=== PATIENT | female | born 1960 | race Caucasian/White ===

== ENCOUNTER 2021-04-20 07:57 | Emergency (ER) | payer BC ==
--- OUTSIDE RECORDS SUMMARY | 2021-04-20 08:00 | XMS REPORT | Continuity of Care Document ---
:1960 Author Organization [facility] t Address [address] [place] [address] Care Team Providers Name Role Phone ARANZA Attending Clinician Unavailable MD SHREE COBIAN Attending Clinician Unavailable ARANZA Admitting Clinician Unavailable BETY WATKINS Admitting Clinician Unavailable Problems This patient has no known problems. Allergies, Adverse Reactions, Alerts Allergy Allergy Status Severity Reaction(s) Onset Inactive Treating Comm ents Source Name Type Date Date Clinician IODINE DRUG Active Other-Cmnt Univer s INGREDI 9-14 ity of 00:00: [address] PENICILL Drug Active Hives 0 [facility] INS Class 9-14 ity of 00:00: [address] SULFA Drug Active Hives 0 Univers (SULFONA Class 9-14 ity of MIDE 00:00: [place] ANTIBIOT [address] [place] [address]) Branch Medications This patient has no known medications. Immunizations Ordered Immunization Filled Immunization Date Status Commen ts Source Name Name Pfizer COVID-19 Vaccine Pfizer COVID-19 2020-09-23 Completed Vaccine 00:00:00 Pfizer COVID-19 Vaccine Pfizer COVID-19 2020-08-27 Completed Vaccine 00:00:00 Procedures This patient has no known procedures. Encounters Start End Encounter Admission Attending Care Care Encounter Source Date/Time Date/Time Type Type Clinicians Facility Department ID 2021-03-19 Outpatient [facility] [id number] 14:27:41 [id number] Lucie - Gabriele faustin Outpat[facility] ent Clinics 2021-04-16 2021-04-16 Outpatient [facility] [id number] [place] 00:00:00 00:00:[address] 2021-04-14 2021-04-14 Outpatient ARANZA [facility] [id number] [place] 00:00:00 00:00:00 TARIQ [address] [facility] 2021-04-09 2021-04-09 Outpatient ARANZA [facility] [id number] [place] 00:00:00 00:00:00 TARIQ 705 [facility] 2021-04-09 2021-04-09 Outpatient ARANZA [facility] [id number] [place] 00:00:00 00:00:00 TARIQ [address] [facility] 2021-02-27 2021-02-27 Outpatient [facility] [id number] [place] 00:00:00 00:00:00 7[address] [facility] 2020-09-23 2020-09-23 Outpatient [facility] [id number] [facility] 00:00:00 00:00:00 V 2020-08-27 2020-08-27 Outpatient [facility] [id number] [facility] 00:00:00 00:00:00 V 2020-01-11 2020-01-11 Outpatient R [facility] [id number] 13:20:00 13:20:00 [id number] [facility] Results Test Description Test Time Test Comments Results Result Comments Source SARS-CoV-2 (COVID-19) RNA [Presence] in Respiratory sp ecimen by 2021-04-09 14:53:27 LUDWIN with probe detection Test Item Value Reference Range Interpretation Comme nts SARS-CoV-2 (COVID-19) RNA [Presence] in Respiratory Not detected No t-Detected specimen by LUDWIN with probe detection (test code = 82185-8) Whether patient is employed in a healthcare setting (test code = 36901-2) Whether the patient has symptoms related to condition of interest (test code = 06273-5) Patient was hospitalized because of this condition (test code = 58993-7) Whether the patient was admitted to intensive care unit (ICU) for condition of interest (test code = 01879-6) Whether patient resides in a congregate care setting (test code = 32964-7) SCR MAMM BILATERAL MYAH CAD [id number] 12:41:06 Name: Miguel Ángel : 1960 Sex: F - SCR MAMM BILATERAL MYAH CAD DIGITALBILATERAL DIGITAL SCREENING MAMMOGRAM 3D/2D WITH CAD: 04/29/2020LINICAL: Asymptomatic. Digital breast tomosynthesis was performed in addition to routine CC and MLO views. Current mammographic images were evaluated by either a [employer] M-Vu or a [employer] CAD (computer aided detectionsystem). Comparison is made to exams dated 01/31/2019 mammogram, 12/14/2017 mammogram, and 10/05/2016 mammogram - [facility]-. There are scattered fibroglandular tissues in both breasts. There is a benign calcification in the left breast. There also is a biopsy clip in the right [address]. No suspicious mass, architectural distortion, malignant type calcification, or lymph node abnormality detected. Breast architecture is stable compared to prior exams.IMPRESSION: BENIGNThere is nomammographic evidence of malignancy. Resume annual screening mammography in one year. Khai Contreras M.D. ss/penrad:05/01/2020 12:41:06 Etched Circuit Processor: Elena FERNANDEZ, [facility]-letter sent: BIRADS 1-2 Normal Mammogram BI-RADS: 2 BenignSCR MAMM BILATERAL CAD [id number] 15:07:02 - SCR MAMM BILATERAL CAD DIGITALBILATERAL DIGITAL SCREENING MAMMOGRAM WITH CAD: 01/31/2019CLINICAL: Asymptomatic. Current mammographic images were evaluated by either a [employer] M- Vu or a [employer] CAD (computer aided detection system). Comparison is made to exams dated 12/14/2017 mammogram, 10/05/2016 mammogram, and 09/05/2015 mammogram - [facility]-. There are scattered fibroglandular tissues in both breasts. There is a benign calcification in the left breast. There also is a biopsy clip in the right breast. No suspicious mass, architectural distortion, malignant type calcification, or lymph node abnormality detected. IMPRESSION: BENIGNThere is no mammographic evidence of malignancy. Resume annual screening mammography in one year. Khai wyman/penmarva:01/31/2019 15:07:02 Etched Circuit Processor: Esperanza Lobato FW, [facility]-FWletter sent: BIRADS 1-2 Normal Mammogram BI-RADS: 2 Benign
[2021-04-20] MEDS ORDERED: DIAZEPAM 5 MG TABLET ONE (08:43)
[2021-04-20 08:51] LABS: Absolute Lymphocytes (CBC) 2.1 K/uL (0.7-4.9); Hematocrit 40.5 % (36.0-45.0); Lymphocytes % 26.7 % (15.3-44.8); MPV 8.7 fL (7.6-11.3); RBC Red Blood Cell Count 4.38 M/uL (3.86-4.86)
[2021-04-20 09:17] LABS: Albumin 3.7 g/dL (3.4-5.0); Bilirubin Total 0.5 mg/dL (0.2-1.0); Protein, Total 7.9 g/dL (6.4-8.2)
[2021-04-20 09:18] LABS: Potassium 3.5 mmol/L (3.5-5.1)
--- NOTE | 2021-04-20 09:29 | RAD REPORT ---
EXAM DESCRIPTION: RAD - Chest Single View - 04/20/2021 9:13 am CLINICAL HISTORY: sob COMPARISON: No comparisons FINDINGS: Lines: None. Lungs: No evidence of edema or pneumonia. Pleural: No significant pleural effusions or pneumothorax. Cardiac: The heart size is within normal limits. Bones: No acute fractures. Other: IMPRESSION: No acute cardiopulmonary disease.
[2021-04-20 09:54] LABS: Urine Blood 1+ (Negative); Urine Glucose Negative (Negative); Urine Protein Negative (Negative); Urine Specific Gravity 1.015 (1.005-1.030); Urine pH 6.5 (5.0-7.0)
--- NOTE | 2021-04-20 12:08 | RAD REPORT ---
EXAM DESCRIPTION: NM - Vent Perfusion VQ Scan - 04/20/2021 11:57 am CLINICAL HISTORY: Shortness of breath COMPARISON: Chest Single View dated 04/20/2021 TECHNIQUE: The patient was administered approximately 15.1 MCi Xenon 133 gas with posterior projecti on inspiration, equilibrium, and washout views obtained. The patient was then administered approximat jessica 7.6 MCi Tc-99m SC labeled RBCs followed by standard 8 view protocol. FINDINGS: There is good distribution of the Xenon with no ventilation defects identified. Air trappi ng is present. Perfusion images show no defects suspicious for pulmonary emboli. IMPRESSION: Very low probability for pulmonary embolism. Air trapping.
--- NOTE | 2021-04-20 12:28 | ER ---
Nurse's Notes [facility] Name: Madeleine Abrams Age: 61 yrs Sex: Female : 1960 Arrival Date: 04/20/2021 Time: 07:57 Bed 19 Private MD: Diagnosis: Dyspnea, unspecified;Moderate persistent asthma with (acute) exacerbation Presentation: 04/20 07:57 Chief complaint: Patient states: Sudden onset of feeling as if something was stuck in ss her throat while eating breakfast this morning. EMS reports VS en route: 100% on RA, 172/94, HR 100. Coronavirus screen: Client denies travel out of the [place] in the last 14 days. Ebola Screen: Patient denies exposure to infectious person. Patient denies travel to an Ebola-affected area in the 21 days before illness onset. Initial Sepsis Screen: Does the patient meet any 2 criteria? No. Patient's initial sepsis screen is negative. Does the patient have a suspected source of infection? No. Patient's initial sepsis screen is negative. Risk Assessment: Do you want to hurt yourself or someone else? Patient reports no desire to harm self or others. Onset of symptoms was April 20, 2021. 07:57 Method Of Arrival: Ambulatory ss 07:57 Acuity: DEYA 3 ss Triage Assessment: 09:20 General: Appears in no apparent distress. Respiratory: Onset: The symptoms/episode eo2 began/occurred this morning, the patient has mild shortness of breath. Historical: - Allergies: 08:00 PENICILLINS; ss 08:00 Sulfa (Sulfonamide Antibiotics); ss 08:43 Iodinated Contrast Media - IV Dye; eo2 - Immunization history:: Adult Immunizations up to date, Client reports receiving the 2nd dose of the Covid vaccine. - Social history:: Smoking status: Patient denies any tobacco usage or history of. Patient/guardian denies using alcohol. Screenin:15 Abuse screen: Denies threats or abuse. Denies injuries from another. Nutritional eo2 screening: No deficits noted. Tuberculosis screening: No symptoms or risk factors identified. Fall Risk None identified. Assessment: 09:15 General: Appears in no apparent distress. comfortable, Behavior is calm, cooperative. eo2 Pain: Denies pain. Neuro: Level of Consciousness is awake, alert, obeys commands, Oriented to person, place, time, situation, Denies dizziness, headache. Cardiovascular: Heart tones S1 S2 Capillary refill < 3 seconds Rhythm is regular. Respiratory: Airway is patent Respiratory effort is even, unlabored, Respiratory pattern is regular, symmetrical, Breath sounds are clear bilaterally. Parent/caregiver reports the patient having shortness of breath sudden onset this AM. GI: No deficits noted. No signs and/or symptoms were reported involving the gastrointestinal system. : Reports urinary frequency, bladder mesh sx on Wednesday. 12:51 General: Pt departed ed ambulatory with all personal effects, pt in nad, vss. lr4 Vital Signs: 07:57 Pulse Ox 98.0% ; ss 08:00 Temp 98.0(O); ss 08:06 BP 155 / 80; Pulse 89; Resp 20; Pulse Ox 98% on R/A; ss 09:18 BP 140 / 72; Pulse 86; Resp 17; Pulse Ox 96% ; Pain 0/10; eo2 10:00 BP 138 / 79; Pulse 87; Resp 15; Pulse Ox 97% ; Pain 0/10; eo2 11:00 BP 133 / 72; Pulse 81; Resp 14; Pulse Ox 98% ; Pain 0/10; eo2 12:51 BP 144 / 76; Pulse 100; Resp 18; Pulse Ox 96% on R/A; lr4 Vitals: 09:15 Cardiac Rhythm Assessment Regular. eo2 ED Course: 07:57 Patient arrived in ED. ss 08:00 Triage completed. ss 08:00 Arm band placed on right wrist. ss 08:03 Phi Wallace MD is Attending Physician. jr11 08:20 Briana Gracia RN is Primary Nurse. eo2 08:36 Inserted saline lock: 22 gauge in right antecubital area, using aseptic technique. eo2 Blood collected. 09:13 Chest Single View In Process Unspecified. EDMS 09:13 Comprehensive Metabolic Panel Sent. eo2 09:13 Troponin High Sensitivity Sent. eo2 09:15 Patient has correct armband on for positive identification. hall monitor on. Pulse eo2 ox on. NIBP on. Door closed. Noise minimized. Warm blanket given. 09:15 No provider procedures requiring assistance completed. eo2 09:31 Inserted saline lock: 22 gauge in left antecubital area, using aseptic technique. IV eo2 discontinued, pt requested. 11:51 Vent Perfusion VQ Scan In Process Unspecified. EDMS Administered Medications: 08:43 Drug: Valium (diazepam) 2.5 mg Route: PO; eo2 09:40 Follow up: Response: No adverse reaction eo2 12:45 Drug: predniSONE 60 mg Route: PO; lr4 12:50 Follow up: Response: No adverse reaction lr4 Outcome: 12:28 Discharge ordered by . jr11 12:52 Discharged to home ambulatory. lr4 12:52 Discharge instructions given to patient. lr4 12:52 Condition: stable lr4 12:52 Patient left the ED. lr4 Signatures: Dispatcher [employer] EDMS Perlita Purvis RN RN ss Briana Gracia RN RN eo2 Phi Wlalace MD MD jr11 Karen Saba RN RN lr4
--- NOTE | 2021-04-20 12:28 | EDPHYS ---
Physician Documentation [facility] Name: Madeleine Abrams Age: 61 yrs Sex: Female : 1960 Arrival Date: 04/20/2021 Time: 07:57 Bed 19 Private MD: ED Physician Phi Wallace HPI: 04/20 08:07 This 61 yrs old Female presents to ER via Ambulatory with complaints of jr11 Shortness Of Breath. 08:07 The patient has shortness of breath at rest. jr11 08:19 Onset: The symptoms/episode began/occurred 2 hour(s) ago. Duration: The symptoms are jr11 continuous. The patient's shortness of breath is aggravated by nothing, is alleviated by nothing. Associated signs and symptoms: Pertinent negatives: chest pain, non-productive cough, loss of consciousness. Severity of symptoms: At their worst the symptoms were moderate in the emergency department the symptoms have improved Pain is currently a 0 / 10. Pt was walking after eating breakfast, then felt dyspnea. No CP. . Historical: - Allergies: 08:00 PENICILLINS; ss 08:00 Sulfa (Sulfonamide Antibiotics); ss 08:43 Iodinated Contrast Media - IV Dye; eo2 - Immunization history:: Adult Immunizations up to date, Client reports receiving the 2nd dose of the Covid vaccine. - Social history:: Smoking status: Patient denies any tobacco usage or history of. Patient/guardian denies using alcohol. ROS: 08:19 Constitutional: Negative for fever, chills Eyes: Negative for injury, pain, redness, jr11 and discharge, ENT: Negative for injury, pain, and discharge, Neck: Negative for injury, pain, and swelling, Cardiovascular: Negative for chest pain, palpitations, and edema, Respiratory: Negative for shortness of breath, cough Abdomen/GI: Negative for abdominal pain, nausea, vomiting Back: Negative for injury and pain, : Negative for injury, bleeding, discharge, and swelling, MS/Extremity: Negative for injury and deformity, Skin: Negative for injury, rash, and discoloration, Neuro: Negative for headache, weakness, numbness, tingling, and seizure, Psych: Negative for depression, anxiety, suicide ideation, homicidal ideation, and hallucinations, Hematologic/Lymphatic: Negative for swollen nodes, abnormal bleeding, and unusual bruising. Exam: 08:19 Constitutional: This is a well developed, well nourished patient who is awake, alert, jr11 and in no acute distress. Head/Face: Normocephalic, atraumatic. Eyes: Extra-ocular motions intact. Lids and lashes normal. Conjunctiva and sclera are non-icteric and not injected. Cornea within normal limits. Periorbital areas with no swelling, redness, or edema. ENT: Nares patent. No nasal discharge, no septal abnormalities noted. Oropharynx with no redness, swelling, or masses, exudates, or evidence of obstruction, uvula midline. Mucous membranes moist. Neck: Trachea midline, no thyromegaly or masses palpated, and no cervical lymphadenopathy. Supple, full range of motion without nuchal rigidity, or vertebral point tenderness. No Meningismus. Chest/axilla: Normal chest wall appearance and motion. Nontender with no deformity. No lesions are appreciated. Cardiovascular: Regular rate and rhythm with a normal S1 and S2. No gallops, murmurs, or rubs. Normal PMI, no JVD. No pulse deficits. Respiratory: Lungs have equal breath sounds bilaterally, clear to auscultation and percussion. No rales, rhonchi or wheezes noted. No increased work of breathing, no retractions or nasal flaring. Abdomen/GI: Soft, non-tender, with normal bowel sounds. No distension or tympany. No guarding or rebound. No evidence of tenderness throughout. Back: No spinal tenderness. No costovertebral tenderness. Full range of motion. Skin: Warm, dry with normal turgor. Normal color with no rashes, no lesions, and no evidence of cellulitis. MS/ Extremity: Pulses equal, no cyanosis. Neurovascular intact. Full, normal range of motion. Neuro: Awake and alert, GCS 15, oriented to person, place, time, and situation. No gross motor or sensory deficits. 08:19 ECG was reviewed by the Attending Physician. EKG interpreted by NSR nl axis, normal jr11 intervals, no acute ST changes, non specific TWI III Vital Signs: 07:57 Pulse Ox 98.0% ; ss 08:00 Temp 98.0(O); ss 08:06 BP 155 / 80; Pulse 89; Resp 20; Pulse Ox 98% on R/A; ss 09:18 BP 140 / 72; Pulse 86; Resp 17; Pulse Ox 96% ; Pain 0/10; eo2 10:00 BP 138 / 79; Pulse 87; Resp 15; Pulse Ox 97% ; Pain 0/10; eo2 11:00 BP 133 / 72; Pulse 81; Resp 14; Pulse Ox 98% ; Pain 0/10; eo2 12:51 BP 144 / 76; Pulse 100; Resp 18; Pulse Ox 96% on R/A; lr4 MDM: 08:03 Patient medically screened. [facility] 08:19 Differential diagnosis: asthma, Chronic Obstructive Pulmonary Disease pneumonia. Data [facility] reviewed: vital signs, nurses notes, EMS record, EKG. 12:25 ED course: Pt with low prob PE, used inhaler prior to coming in, air trapping on scan, jr11 will give steroids. 04/20 08:25 Order name: Comprehensive Metabolic Panel; Complete Time: 09:24 EDMS 04/20 08:25 Order name: D-Dimer; Complete Time: 09:03 EDCT 04/20 09:03 Interpretation: Abnormal. [facility] 04/20 08:25 Order name: Troponin High Sensitivity; Complete Time: 09:18 EDCT 04/20 08:25 Order name: CBC with Automated Diff; Complete Time: 09:03 EDCT 04/20 08:25 Order name: Chest Single View; Complete Time: 09:34 EDCT 04/20 08:46 Order name: Protime (+INR); Complete Time: 09:03 EDCT 04/20 09:54 Order name: Urine Dipstick-Ancillary; Complete Time: 10:06 [facility] 04/20 10:01 Order name: Vent Perfusion VQ Scan; Complete Time: 12:24 EDCT 04/20 08:10 Order name: Cardiac monitoring; Complete Time: 09:14 [facility] 04/20 08:10 Order name: EKG - Nurse/Tech; Complete Time: 09:14 [facility] 04/20 08:10 Order name: IV Saline Lock; Complete Time: 09:14 [facility] 04/20 08:10 Order name: Labs collected and sent; Complete Time: 09:14 [facility] 04/20 08:10 Order name: O2 Sat Monitoring; Complete Time: 09:14 [facility] 04/20 08:17 Order name: O2 Per Protocol; Complete Time: 09:[address] [facility] 04/20 08:26 Order name: EKG Electrocardiogram; Complete Time: 09:13 EDMS 04/20 09:34 Order name: Urine Dipstick-Ancillary (obtain specimen); Complete Time: 10:31 goldie Administered Medications: 08:43 Drug: Valium (diazepam) 2.5 mg Route: PO; eo2 09:40 Follow up: Response: No adverse reaction eo2 12:45 Drug: predniSONE 60 mg Route: PO; lr4 12:50 Follow up: Response: No adverse reaction lr4 Disposition: 08:19 Critical Care:. jr Disposition Summary: 04/20/21 12:28 Discharge Ordered Location: Home jr Condition: Stable jr11 Diagnosis - Dyspnea, unspecified jr11 - Moderate persistent asthma with (acute) exacerbation jr11 Followup: jr11 - With: Private Physician - When: 1 - 2 days - Reason: Re-evaluation by your physician Discharge Instructions: - Discharge Summary Sheet jr11 - Asthma, Adult jr11 - Shortness of Breath, Adult jr11 Forms: - Medication Reconciliation Form jr11 - Thank You Letter jr11 - Antibiotic Education jr11 - Prescription Opioid Use jr11 Prescriptions: - Prednisone 20 mg Oral Tablet - take 3 tablets by ORAL route once daily for 5 days; 15 tablet; Refills: 0, jr11 Product Selection Permitted Signatures: Dispatcher [employer] EDMS Jim Castellanos PA PA jmm Smirch, Shelby, RN RN ss Briana Gracia RN RN eo2 Phi Wallace MD MD jr11 Karen Saba RN RN lr4 Corrections: (The following items were deleted from the chart) 08:05 08:03 Patient medically screened. [facility] jr11 08:44 08:25 Protime (+INR) ordered. EDCT EDMS
[2021-04-20] MEDS ORDERED: predniSONE 20 MG TAB ONE (12:47)
[2021-04-20 12:59] VITALS: TEMP 98
[2021-04-20 13:06] VITALS: BP 144/76; O2SAT 96
--- NOTE | 2021-04-21 08:50 | EKG ---
Test Date: 2021-04-20 Test Time: 08:11:19 Avionics Systems Engineer: EO MEASUREMENT RESULTS: Intervals: Rate: 84 PA: 138 QRSD: 84 QT: 370 QTc: 437 [place]: P: -3 PA: 138 QRS: 22 T: 17 INTERPRETIVE STATEMENTS: Normal sinus rhythm Normal ECG Compared to ECG 01/27/2021 14:51:05 No significant changes Electronically Signed On 04-21-21 08:47:46 [employer] MELTING SUPERVISOR by Don Che
== END 2021-04-20 12:52 | disposition home or self-care (01) ==
LOC: ER 07:57
DX: J45.41 Moderate persistent asthma with (acute) exacerbation (principal); Z88.0 Allergy status to penicillin; Z88.2 Allergy status to sulfonamides; Z91.041 Radiographic dye allergy status
CPT/HCPCS: 93005; 85025; 36415; 85610; 85379; 81003; 84484; 80053; 71045; 78582; 99284; A9558; A9540; J7512

== ENCOUNTER 2023-08-11 11:21 | Emergency (ER) | payer OTHER ==
--- NOTE | 2023-08-11 12:17 | RAD REPORT ---
EXAM DESCRIPTION: CT - CTHCSPWOC - 08/11/2023 12:06 pm CLINICAL HISTORY: Trauma, head and neck injury. TRAUMA COMPARISON: No comparisons TECHNIQUE: Axial 5 mm thick images of the head were obtained. Axial 2 mm thick images of the cervical spine were obtained with sagittal and coronal reconstruction images generated and reviewed. All CT scans are performed using dose optimization technique as appropriate and may include automated exposure control or mA/KV adjustment according to patient size. FINDINGS: CT HEAD WITHOUT CONTRAST: No acute hemorrhage, hydrocephalus or extra-axial collection is identified.No areas of brain edema or midline shift. The paranasal sinuses and mastoids are clear.The calvarium is intact. CT CERVICAL SPINE WITHOUT CONTRAST: No fracture or subluxation.No prevertebral soft tissues swelling is identified. IMPRESSION: No acute intracranial or cervical spine findings.
[2023-08-11 13:28] VITALS: BP 141/69; TEMP 97.9; O2SAT 98
--- NOTE | 2023-08-11 15:07 | ER ---
Nurse's Notes [facility] Name: Madeleine Abrams Age: 63 yrs Sex: Female : 1960 Arrival Date: 08/11/2023 Time: 11:21 Bed 13 Private MD: Diagnosis: Closed head injury, scalp hematoma Presentation: 08/10 11:43 Chief complaint: Patient states: slipped and fell in driveway 1.5 hours ago. Denies ss LOC. Reports tenderness to back of head. Coronavirus screen: Client denies travel out of the [place] in the last 14 days. Ebola Screen: Patient denies exposure to infectious person. Patient denies travel to an Ebola-affected area in the 21 days before illness onset. Initial Sepsis Screen: Does the patient meet any 2 criteria? No. Patient's initial sepsis screen is negative. Does the patient have a suspected source of infection? No. Patient's initial sepsis screen is negative. Risk Assessment: Do you want to hurt yourself or someone else? Patient reports no desire to harm self or others. Onset of symptoms was August 11, 2023. 11:43 Method Of Arrival: Ambulatory ss 11:43 Acuity: DEYA 3 ss Triage Assessment: 11:44 General: Appears in no apparent distress. comfortable, Behavior is calm, cooperative. ss Pain: Complains of pain in back of head Pain currently is 7 out of 10 on a pain scale. EENT: Oral mucosa is moist. Neuro: Level of Consciousness is awake, alert, obeys commands, Oriented to person, place, time, situation. Respiratory: Airway is patent Respiratory effort is even, unlabored, Respiratory pattern is regular, symmetrical. Derm: Skin is intact, is healthy with good turgor, Skin is pink, warm \T\ dry. normal. Historical: - Allergies: 11:44 Iodinated Contrast Media - IV Dye; ss 11:44 PENICILLINS; ss 11:44 Sulfa (Sulfonamide Antibiotics); ss - Home Meds: 11:44 Lipitor Oral [Active]; ss - PMHx: 11:44 concussions x 2; ss - PSHx: 11:44 R knee; carpal tunnel; bladder suspension; ss - Immunization history:: Client reports receiving the 2nd dose of the Covid vaccine. - Infectious Disease History:: Denies. - Social history:: Smoking status: Patient denies any tobacco usage or history of. Screenin:00 [facility] ED Fall Risk Assessment (Adult) History of falling in the last 3 months, ap3 including since admission No falls in past 3 months (0 pts) Confusion or Disorientation No (0 pts) Intoxicated or Sedated No (0 pts) Impaired Gait No (0 pts) Mobility Assist Device Used No (0 pt) Altered Elimination No (0 pt) Score/Fall Risk Level 0 - 2 = Low Risk Maintained a safe environment, Provided non-skid footwear, Hourly rounding (assess needs \T\ fall precautionary measures) done. Abuse screen: Denies threats or abuse. Nutritional screening: No deficits noted. Tuberculosis screening: No symptoms or risk factors identified. Assessment: 12:00 General: Appears comfortable, well groomed, well developed, well nourished, Behavior is ap3 calm, cooperative, appropriate for age, Reports slipped and fell in driveway 1.5 hours ago. Denies LOC. Reports tenderness to back of head. Pain: Complains of pain in back of head Pain currently is 3 out of 10 on a pain scale. Quality of pain is described as aching, Pain began suddenly, Is continuous. Neuro: Level of Consciousness is awake, alert, obeys commands, Oriented to person, place, time, situation, Appropriate for age. Cardiovascular: Patient's skin is warm and dry. Respiratory: Airway is patent Respiratory effort is even, unlabored, Respiratory pattern is regular, symmetrical. GI: No signs and/or symptoms were reported involving the gastrointestinal system. : No signs and/or symptoms were reported regarding the genitourinary system. EENT: No signs and/or symptoms were reported regarding the EENT system. Derm: Skin is intact, is healthy with good turgor, Skin is pink, warm \T\ dry. Musculoskeletal: No signs and/or symptoms reported regarding the musculoskeletal system. Injury Description: slipped and fell in driveway 1.5 hours ago. Denies LOC. Reports tenderness to back of head. Vital Signs: 11:43 BP 156 / 83; Pulse 79; Resp 16; Temp 97.9(O); Pulse Ox 98% on R/A; Weight 61.23 kg; ss Height 5 ft. 2 in. ; Pain 7/10; 12:15 BP 141 / 74; Pulse 78; Resp 16; Pulse Ox 99% on R/A; ap3 12:15 BP 141 / 69; Pulse 83; Resp 14; Pulse Ox 98% on R/A; ap3 11:43 Body Mass Index 24.69 (61.23 kg, 157.48 cm) ss 11:43 Pain Scale: Adult ss ED Course: 11:23 Patient arrived in ED. mr 11:29 Se Cedillo MD is Attending Physician. sp3 11:44 Triage completed. ss 11:44 Arm band placed on left wrist. ss 12:00 Patient has correct armband on for positive identification. Bed in low position. Call ap3 light in reach. Side rails up X2. Provided Education on: POC. Verbalized understanding. . Client placed on continuous cardiac and pulse oximetry monitoring. NIBP monitoring applied. Pulse ox on. NIBP on. 12:00 No provider procedures requiring assistance completed. Patient did not have IV access ap3 during this emergency room visit. 12:03 Bina Fernandes, RN is Primary Nurse. ap3 12:04 CT Head C Spine In Process Unspecified. EDMS Administered Medications: No medications were administered Medication: 12:00 VIS not applicable for this client. ap3 Outcome: 12:43 Discharge ordered by MD. sp3 13:04 Discharged to home ambulatory, with significant other, ap3 13:04 Condition: stable 13:04 Discharge instructions given to patient, significant other, Instructed on discharge instructions, follow up and referral plans. Demonstrated understanding of instructions, follow-up care, 13:04 Patient left the ED. ap3 Signatures: Dispatcher [employer] EDMS Tessa Gonzalez, Reg Reg Perlita Gruber RN RN Bina Fernandes, NANDO RN ap3 Se Cedillo MD MD sp3 Corrections: (The following items were deleted from the chart) 13:00 11:43 Chief complaint: Patient states: slipped and fell in driveway 1.5 hours ago. ap3 Denies LOC. Reports tenderness to back of head. ss
--- NOTE | 2023-08-11 15:07 | EDPHYS ---
Physician Documentation [facility] Name: Madeleine Abrams Age: 63 yrs Sex: Female : 1960 Arrival Date: 08/11/2023 Time: 11:21 Bed 13 Private MD: ED Physician Se Cedillo HPI: 08/10 12:13 This 63 yrs old Female presents to ER via Ambulatory with complaints of Fall Injury, sp3 Head Injury-Adult. 12:13 63-year-old female with a history of concussions as a child presents to the ED with a sp3 mechanical ground-level fall where she hit the back of her head on the concrete in her driveway. Patient currently has mild posterior headache and neck stiffness. She denies any other symptoms including change in vision, change in hearing, chest pain, back pain, low back pain, shortness of breath, abdominal pain, other extremity pain, bleeding, repetitive questions, or any other signs or symptoms on ROS at this time. She denies LOC.. Historical: - Allergies: 11:44 Iodinated Contrast Media - IV Dye; ss 11:44 PENICILLINS; ss 11:44 Sulfa (Sulfonamide Antibiotics); ss - Home Meds: 11:44 Lipitor Oral [Active]; ss - PMHx: 11:44 concussions x 2; ss - PSHx: 11:44 R knee; carpal tunnel; bladder suspension; ss - Immunization history:: Client reports receiving the 2nd dose of the Covid vaccine. - Infectious Disease History:: Denies. - Social history:: Smoking status: Patient denies any tobacco usage or history of. ROS: 12:14 Constitutional: Negative for fever, chills, and weight loss, Eyes: Negative for injury, sp3 pain, redness, and discharge, ENT: Negative for injury, pain, and discharge, Cardiovascular: Negative for chest pain, palpitations, and edema, Respiratory: Negative for shortness of breath, cough, wheezing, and pleuritic chest pain, Abdomen/GI: Negative for abdominal pain, nausea, vomiting, diarrhea, and constipation, Back: Negative for injury and pain, MS/Extremity: Negative for injury and deformity, Skin: Negative for injury, rash, and discoloration, Psych: Negative for depression, anxiety, suicide ideation, homicidal ideation, and hallucinations, Allergy/Immunology: Negative for hives, rash, and allergies, Endocrine: Negative for neck swelling, polydipsia, polyuria, polyphagia, and marked weight changes, Hematologic/Lymphatic: Negative for swollen nodes, abnormal bleeding, and unusual bruising, 12:14 All other systems are negative, Exam: 12:14 Constitutional: This is a well developed, well nourished patient who is awake, alert, sp3 and in no acute distress. Eyes: Pupils equal round and reactive to light, extra-ocular motions intact. Lids and lashes normal. Conjunctiva and sclera are non-icteric and not injected. Cornea within normal limits. Periorbital areas with no swelling, redness, or edema. ENT: Nares patent. No nasal discharge, no septal abnormalities noted. External auditory canals are clear. Oropharynx with no redness, swelling, or masses, exudates, or evidence of obstruction, uvula midline. Mucous membranes moist. Neck: Trachea midline, no thyromegaly or masses palpated, and no cervical lymphadenopathy. Supple, full range of motion without nuchal rigidity, or vertebral point tenderness. No Meningismus. Chest/axilla: Normal chest wall appearance and motion. Nontender with no deformity. No lesions are appreciated. Cardiovascular: Regular rate and rhythm with a normal S1 and S2. No gallops, murmurs, or rubs. Normal PMI, no JVD. No pulse deficits. Respiratory: Lungs have equal breath sounds bilaterally, clear to auscultation and percussion. No rales, rhonchi or wheezes noted. No increased work of breathing, no retractions or nasal flaring. Abdomen/GI: Soft, non-tender, with normal bowel sounds. No distension or tympany. No guarding or rebound. No evidence of tenderness throughout. Back: No spinal tenderness. No costovertebral tenderness. Full range of motion. Skin: Warm, dry with normal turgor. Normal color with no rashes, no lesions, and no evidence of cellulitis. MS/ Extremity: Pulses equal, no cyanosis. Neurovascular intact. Full, normal range of motion. Neuro: Awake and alert, GCS 15, oriented to person, place, time, and situation. Cranial nerves II-XII grossly intact. Motor strength 5/5 in all extremities. Sensory grossly intact. Cerebellar exam normal. Normal gait. Psych: Awake, alert, with orientation to person, place and time. Behavior, mood, and affect are within normal limits. 12:14 Head/face: Pain to palpation with mild hematoma posteriorly.. Vital Signs: 11:43 BP 156 / 83; Pulse 79; Resp 16; Temp 97.9(O); Pulse Ox 98% on R/A; Weight 61.23 kg; ss Height 5 ft. 2 in. ; Pain 7/10; 12:15 BP 141 / 74; Pulse 78; Resp 16; Pulse Ox 99% on R/A; ap3 12:15 BP 141 / 69; Pulse 83; Resp 14; Pulse Ox 98% on R/A; ap3 11:43 Body Mass Index 24.69 (61.23 kg, 157.48 cm) ss 11:43 Pain Scale: Adult ss MDM: 11:42 Patient medically screened. sp3 12:14 Data reviewed: vital signs, nurses notes, radiologic studies. ED course: 63-year-old sp3 female with mechanical fall and posterior head injury. Differential diagnosis includes scalp hematoma, closed head injury, concussion, intracranial hemorrhage, fracture, among others. Workup will include CT scan of the head and C-spine and if negative we will safely discharge patient home with general precautions and OTC meds. Patient is not on any antiplatelet or anticoagulant agents.. 08/10 11:42 Order name: CT Head C Spine; Complete Time: 12:42 sp3 Administered Medications: No medications were administered Disposition Summary: 08/11/23 12:43 Discharge Ordered Notes: Location: Home sp3 Condition: Stable sp3 Diagnosis - Closed head injury, scalp hematoma sp3 Followup: sp3 - With: Private Physician - When: Upon discharge from the Emergency Department - Reason: Continuance of care Discharge Instructions: - Discharge Summary Sheet sp3 - Head Injury, Adult sp3 Forms: - Medication Reconciliation Form sp3 - Antibiotic Education sp3 - Prescription Opioid Use sp3 - Patient Portal Instructions sp3 - Leadership Thank You Letter sp3 Signatures: Dispatcher [employer] Perlita Oh, NANDO RN Se Deng MD MD sp3
== END 2023-08-11 13:04 | disposition home or self-care (01) ==
LOC: ER 11:21
DX: S00.03XA Contusion of scalp, initial encounter (principal); W18.30XA Fall on same level, unspecified, initial encounter
CPT/HCPCS: 70450; 72125